=== PATIENT | female | born 1980 | race Native Hawaiian/Other Pacific Islander ===

== ENCOUNTER 2017-07-13 11:53 | Inpatient (IN) | payer BC, OTHER ==
--- NOTE | 2017-07-13 12:55 | OBHP ---
Datetime: 07/13/2017 12:46 IP Adm Impression: Term, intrauterine IP Adm Impression Other: previous csection in labor IP Admit Plan: Admit to unit; Initiate Section protocol Admit Comment, IP Provider: chief complaint-contractions HPI 36 y/o at 38.1 wga with c/o contractions.Patient denies nausea, vomting, headache, chest pain, shortness of breath, numbness or tingling in hands and feet course complictaed by xanax use during .Patient s/p genetic cousnelling.declined amnio. PMH depression and anxiety PSH csectionx2 OBGYN HX ; Csectionx2 Social hx denies tobacco,alcohol or illicit drug use Exam see exam section A/P 36 y/o at 38.1 wga with hx of 2 previous csection in labor -admit -see orders dr du aware Pelvic Type - PN: Adequate Extremities - PN: Normal Abdomen - PN: Normal Back - PN: Normal Lungs - PN: Normal Heart - PN: Normal Neurologic - PN: Normal General - PN: Normal Contraction Comments Provider: every 3-5min Gestation - Est Wks by US: 38.1 EGA AdmitDate IP: 38.1 Vital Signs Provider: Reviewed; Within Normal Limits IP Chief Complaint: Uterine contractions FHR Category Provider Fetus A: Category I Dilatation, Provider: 1 Effacement, Provider: 70 Station, Provider: -3 Genitourinary Exam: Normal DTRs - PN: Normal
[2017-07-13 12:57] VITALS: BMI 30.8
[2017-07-13] MEDS ORDERED: cefOXitin IV 2 gm in Dextrose 2 GM/50 ML BAG IVPB ONE ×2 (12:57→14:14)
[2017-07-13] MEDS ORDERED: Sodium Citrate/Citric Acid 15 ml Sol PO ONE (12:57)
[2017-07-13] MEDS ORDERED: Lactated Ringer's 1,000 ML IV SCH (13:00)
[2017-07-13 13:43] LABS: BASO # 0.1 K/uL (0.0-0.2); BASO % 0.7 % (0.0-2.0); EOS # 0.5 K/uL (0.0-0.7); EOS % 3.4 % (0.0-4.0); HEMATOCRIT 34.7 % (34.0-47.0); LYMPH # 2.2 K/uL (1.0-4.3); LYMPH % 16.6 % (20.0-40.0); MEAN CORPUSCULAR HGB CONC 33.8 g/dL (33.0-37.0); MEAN PLATELET VOLUME 9.5 fL (7.2-11.7); MONO # 0.7 K/uL (0.0-0.8); MONO % 5.3 % (0.0-10.0); RED CELL DISTRIBUTION WIDTH 14.3 % (11.5-14.5); WHITE BLOOD COUNT 13.6 K/uL (4.8-10.8)
[2017-07-13 13:52] LABS: MEAN CELL VOLUME 85.9 fL (81.0-99.0)
[2017-07-13 13:54] LABS: CHLORIDE 102 mmol/L (98-107)
[2017-07-13 13:55] LABS: POTASSIUM 3.9 mmol/L (3.6-5.2); SODIUM 136 mmol/L (132-148)
[2017-07-13 13:57] LABS: ALKALINE PHOSPHATASE 179 U/L (38-126); AST/SGOT 17 U/L (14-36); BILIRUBIN,TOTAL 0.8 mg/dL (0.2-1.3); BLOOD UREA NITROGEN 6 mg/dL (7-17); CARBON DIOXIDE 20 mmol/L (22-30); GFR AFRICAN-AMERICAN > 60; GLUCOSE,RANDOM 71 mg/dL (65-105); TOTAL PROTEIN 7.1 g/dL (6.3-8.3)
[2017-07-13 13:58] LABS: ALT/SGPT 18 U/L (9-52); CALCIUM 9.1 mg/dl (8.6-10.4)
[2017-07-13 14:07] LABS: RBC URINE 3 /hpf (0-3); URINE BACTERIA OCC (<OCC); URINE BILIRUBIN NEGATIVE (NEGATIVE); URINE COLOR Yellow (YELLOW); URINE GLUCOSE (UA) NORMAL (Normal); URINE KETONE TRACE mg/dL (NEGATIVE); URINE LEUKOCYTE ESTERASE NEG Leu/uL (Negative); URINE PROTEIN NEGATIVE (NEGATIVE); URINE UROBILINOGEN NORMAL mg/dL (0.2-1.0); WBC URINE 2 /hpf (0-5)
[2017-07-13 14:10] LABS: URINE BLOOD TRACE (NEGATIVE)
[2017-07-13] MEDS ORDERED: Oxytocin 20 units in LR 2,000 ML IV ONE (14:14)
[2017-07-13] MEDS ORDERED: Sodium Citrate/Citric Acid 15 ml Sol ONE (14:14)
[2017-07-13] MEDS ORDERED: Morphine 1 mg/ml preservative-free Inj(Duramorph) ONE (14:58)
[2017-07-13] MEDS ORDERED: Phenylephrine 10 mg/ml Inj ONE (14:58)
[2017-07-13] MEDS ORDERED: Oxycodone/Acetaminophen 5/325 mg Tab PO PRN (16:29)
--- NOTE | 2017-07-13 17:07 | OBADHP ---
Datetime: 07/13/2017 12:46 IP Adm Impression Other: previous csection in labor Admit Comment, IP Provider: chief complaint-contractions HPI 36 y/o at 38.1 wga with c/o contractions increasign intensity and freuqcy. Patient denie s nausea, vomting, headache, chest pain, shortness of breath, numbness or tingling in hands and feet course complictaed by xanax use during .Patient s/p genetic cousnelling.declined amnio. PMH depression and anxiety PSH csectionx2 OBGYN HX ; Csectionx2 Social hx denies tobacco,alcohol or illicit drug use Exam see exam section A/P 36 y/o at 38.1 wga with hx of 2 previous csection in labor desire permante tubal sterilzi aton -admit -see orders dr du aware pt reexamiend 3cm for RLTCS and BLT Pelvic Type - PN: Adequate Extremities - PN: Normal Abdomen - PN: Normal Back - PN: Normal Lungs - PN: Normal Heart - PN: Normal Neurologic - PN: Normal General - PN: Normal Contraction Comments Provider: every 3-5min Gestation - Est Wks by US: 38.1 Vital Signs Provider: Reviewed; Within Normal Limits IP Chief Complaint: Uterine contractions FHR Category Provider Fetus A: Category I Dilatation, Provider: 3-4 Effacement, Provider: 70 Station, Provider: -3 Genitourinary Exam: Normal DTRs - PN: Normal EGA AdmitDate IP: 38.1 IP Adm Impression: Term, intrauterine IP Admit Plan: Admit to unit; Initiate Section protocol
--- NOTE | 2017-07-13 17:07 | OBDS ---
DELIVERY PERSONNEL Delivery Doctor: Eloise Oliver MD Scrub Nurse: Monie Tapia OBT Staffing Coordinator: Bill Hutchinson RN Anesthesiologist: DR METZGER Resident: ALLISON MATERNAL INFORMATION Delivery Anesthesia: Spinal Estimated Blood Loss (ml): 800 Provider Comments: live female ifnat weight 6lbs 9 oucnes biltarey tubal ligatin peidatricin present for [facility] 800ml LABOR SUMMARY EDC: 07/26/2017 00:00 LABOR INFORMATION Group B Beta Strep: Negative STAGES OF LABOR Stage 3 hrs: 0 Stage 3 min: 1 BABY A INFORMATION Infant Delivery Date/Time: 07/13/2017 16:16 Method of Delivery: Born in Route : No : N/A Forceps: N/A Vacuum Extraction: N/A Shoulder Dystocia : No SHOULDER DYSTOCIA BABY A Delivery Date/Time: 07/13/2017 16:16 PRESENTATION/POSITION BABY A Presentation: Cephalic Cephalic Presentation: Vertex Vertex Position: Left Occipital Posterior Breech Presentation: N/A PLACENTA INFORMATION BABY A Placenta Delivery Time : 07/13/2017 16:17 (Annotations: Data stored by [facility] on behalf of user) Placenta Method of Delivery: Manual Removal Placenta Status: Delivered INFORMATION BABY A Gestational Age at Delivery: 38.1 Gestational Status: Term Outcome : Liveborn Condition : Stable Infant Sex: Female IDENTIFICATION/MEDS BABY A ID Band Number: [id number] WEIGHT/LENGTH BABY A Birthweight (gms): 2990 Infant Weight (lb): 6 Weight (oz): 9 Infant Length Inches: 18.50 Length cms: 47.0 CORD INFORMATION BABY A No. Cord Vessels: 3 Cord Blood Taken: Yes Suction: Mouth; Nose ASSESSMENT BABY A Infant Complications: None Physical Findings at Delivery: Within Normal Limits Infant Respirations: Appears Normal World History Teacher/ALS Called : Yes Infant Care By: DR HUTCHISON Transferred To: Remains with Mother
--- NOTE | 2017-07-13 17:41 | PCM.SURG1 ---
Surgeon's Initial Post Op Note - Surgeon's Notes Surgeon: Yany Oliver MD Chemical Recovery Operator: Ruy Sky MD Type of Anesthesia: General Endo, Spinal Pre-Operative Diagnosis: Prior cesearean section contractign in labor , multiparity desiring permeante tubal sterilzation Operative Findings: live female infant, cephalic presentation, agpars 9,9 adult educator [address] for delivery[address] Dr Ruy Sky was surgical attendant and present for entrie and essential in gaining entry, retractin, exposure, performing bilaterl tubal ligation, obtainign hemostasis. Post-Operative Diagnosis: same as above Operation Performed: Repeat Low Transverse cesearean section, Bilateral tubal ligation Specimen/Specimens Removed: placenta, portion of right and left fallopian tubes Estimated Blood Loss: EBL {In ML}: 800 Blood Products Given: N/A Drains Used: No Drains Post-Op Condition: Good Date of Surgery/Procedure: 07/13/17 Time of Surgery/Procedure: 17:00
[2017-07-13] MEDS: cefOXitin IV 2 gm in Dextrose 2 GM/50 ML BAG IVPB SCH (22:49)
--- NOTE | 2017-07-14 03:24 | OBPPN ---
Datetime: 07/14/2017 03:18 PP Pain Prov: Within normal limits PP Nausea Prov: Denies PP Flatus Prov: No PP BM Prov: No PP Breasts Prov: Normal PP Heart Prov: Normal PP Lungs Prov: Normal PP Abdomen/Uterus Prov: Normal PP Lochia Prov: Normal PP Vulva/Perineum Prov: Normal PP CVA Tenderness Prov: Normal PP Extremities Prov: Normal PP C/S Incision Prov: Normal PP Progress Prov: Normal PP Impression Prov: Normal progression PP Plan Prov: Continue present management PP Progress Note Prov: Pt seen and examined and reports pain controlled wth medicaoin. Pt not yet am buating, +best, tolerating clear liquid diet, denies any lightheadness, dizzyness, Cp, SOB. Pt denie s any feelsing of anxiety, sadness or depression adn reports bresat feeding is going well. VSS PE: GEN: NAD, feels tired RESP: CTAB/l CVS: RRR, +S1/S2 BREAST: NON enogaroged b/l ABD: soft, appropriatley TTP, ND, No guaridng, no reboudn tenderness, no rigidity, +BS INCSION C/D/I FUNDUS: Fimr, at level of umbilucs VE: moderate lochia , non foul smelling EXT: non calf tnednree, negateive ana's sign A/P s/p RLTCS +BTL POD #1 doing wel -Pain manamgent: percocet/motrin -advance diet as tolerated -d/c best 6am -activity out of bed with assistance -bowel regimen -encourge breast feeding -incentive spirometer -abdominal binder -f/u AM labs IP PP Procedures: None Vital Signs Provider PP: Reviewed; Within Normal Limits
[2017-07-14] MEDS: cefOXitin IV 2 gm in Dextrose 2 GM/50 ML BAG IVPB SCH ×2 (05:45→14:16)
[2017-07-14] MEDS: Oxycodone/Acetaminophen 5/325 mg Tab PO PRN ×3 (05:50→23:53)
--- NOTE | 2017-07-14 06:20 | OP ---
PROCEDURE DATE: SURGEON: Yany Oliver MD WORKFORCE SPECIALIST: Ruy Sky MD TYPE OF ANESTHESIA: Spinal. PREOPERATIVE DIAGNOSES: Prior section, protracted labor,multipara, desiring permanent tubal sterilization. POSTOPERATIVE DIAGNOSES: Prior section, protracted labor,multipara, desiring permanent tubal sterilization. OPERATIVE FINDINGS: Live female , cephalic presentation, Apgars 9 and 9. WEATHERIZATION INSTALLER PRESENT FOR DELIVERY: Dr. Ruy Sky, assistant professor of sociology, and present for entire case and essentially gaining entry, retraction, closure, performing bilateral tubal ligation, obtaining hemostasis, holding the bladder blade. OPERATION PERFORMED: Repeat low transverse section and bilateral tubal ligation. SPECIMEN: Placenta, portion of right and left fallopian tubes. ESTIMATED BLOOD LOSS: 800 mL. BLOOD PRODUCTS: None. COMPLICATIONS: None. DESCRIPTION OF PROCEDURE: The patient was taken to the operating room where she was given spinal anesthesia. Once it was adequate, she was placed on the operating table in dorsal supine position. The patient was then prepped and draped in usual sterile fashion. A time-out confirmed correct patient and correct procedure. The patient was given preoperative prophylactic antibiotic. Pfannenstiel skin incision was made with the scalpel carried down to the underlying fascia with Bovie . The fascia was incised in the midline and incision was extended laterally with the Bovie. The superior aspect of the fascial incision was grasped with Allis and Irvin clamps and underlying rectus muscle resected off bluntly. Attention was then turned to the inferior aspect of the incision in a similar fashion. It was grasped with Allis and Irvin clamps and underlying rectus muscle resected off bluntly. The rectus was then bluntly in midline. The peritoneum was identified in the clear space, entered bluntly. *------* good visualization of the bladder. The Claus was then inserted and the vesicouterine pneumoperitoneum was incised with Metzenbaum scissors. The incision was extended laterally and the bladder flap was created digitally. The lower end of [place] was then inserted. Uterine segment was incised in transverse fashion. The lower uterine segment was incised in transverse fashion, continued laterally and bluntly. Amniotic fluid membrane was then ruptured. There was clear fluid noted. The surgeon's hand entered the uterine cavity and the 's head was delivered atraumatically. The nuchal cord was noted that was easily reduced followed by delivery of shoulder and followed by delivery of the body. Both oral and nasal passages of the baby were bulb suctioned. The umbilical cord was clamped and cut and the baby was handed off the awaiting shift supervisor film processing. The cord blood and cord gases were collected and sent x2. The placenta was then delivered manually. The uterus was exteriorized and cleared off all clots and debris. The uterine incision was repaired with 0 Vicryl in a running continuous locking fashion. A second layer of the same suture was used to close the uterus in a running imbricating manner. Bilateral tubal ligation was then performed. After this, good hemostasis noted at surgical site. The fallopian tube was then grasped with Kimberton clamp approximately one third from the ampullary region near the cornua and a [place] method was then performed bilaterally on each side. Portion of the tube was then excised, cauterized, and sent to pathology; on Telfa. The uterus was then returned to the abdomen and the paracolic gutters were cleared of all clots and debris. There was good hemostasis at the uterine incision site and also at the tubal ligation site. The peritoneum was reapproximated with 2-0 chromic in a running continuous fashion. The rectus was reapproximated and closed with 2-0 chromic in an interrupted manner. Subcutaneous layers closed with 2-0 plain in interrupted manner. The skin was reapproximated and closed with 4-0 Monocryl in a running subcuticular fashion. At the end of the procedure, all needle, sponge, and instrument counts were noted as correct x2. The patient tolerated the procedure well, and was transferred to recovery room in stable condition. Yany Oliver MD
[2017-07-14 07:57] LABS: BASO % 0.1 % (0.0-2.0); EOS # 0.3 K/uL (0.0-0.7); EOS % 1.9 % (0.0-4.0); HEMATOCRIT 33.6 % (34.0-47.0); LYMPH # 1.1 K/uL (1.0-4.3); LYMPH % 6.6 % (20.0-40.0); MEAN CELL VOLUME 86.2 fL (81.0-99.0); MEAN CORPUSCULAR HEMOGLOBIN 28.5 pg (27.0-31.0); MEAN CORPUSCULAR HGB CONC 33.1 g/dL (33.0-37.0); MEAN PLATELET VOLUME 9.1 fL (7.2-11.7); MONO # 0.9 K/uL (0.0-0.8); PLATELET COUNT 176 K/uL (130-400); RED CELL DISTRIBUTION WIDTH 14.5 % (11.5-14.5); WHITE BLOOD COUNT 17.4 K/uL (4.8-10.8)
[2017-07-14 10:17] LABS: EOSINOPHIL 3 % (0-4); MYELOCYTE 1 % (0-0); NEUTROPHIL 70 % (50-75); TOTAL CELLS COUNTED 100
[2017-07-14] MEDS: Simethicone 80 mg Chewtab PO SCH ×4 (10:33→21:08)
[2017-07-14] MEDS: Prenatal Multivit/Folic Acid/Iron Tab PO SCH (10:33)
[2017-07-14] MEDS ORDERED: cefOXitin IV 2 gm in Dextrose 2 GM/50 ML BAG IVPB ONE (14:08)
[2017-07-15 07:39] LABS: BASO % 0.2 % (0.0-2.0); EOS # 0.5 K/uL (0.0-0.7); EOS % 3.2 % (0.0-4.0); HEMATOCRIT 29.4 % (34.0-47.0); LYMPH # 2.4 K/uL (1.0-4.3); LYMPH % 15.4 % (20.0-40.0); MEAN CELL VOLUME 87.4 fL (81.0-99.0); MEAN CORPUSCULAR HEMOGLOBIN 28.8 pg (27.0-31.0); MEAN PLATELET VOLUME 9.1 fL (7.2-11.7); MONO % 6.7 % (0.0-10.0); RED CELL DISTRIBUTION WIDTH 14.1 % (11.5-14.5); WHITE BLOOD COUNT 15.6 K/uL (4.8-10.8)
--- NOTE | 2017-07-15 09:24 | CP.PCM.PN ---
<YADY,MARK - Last Filed: 07/15/17 09:22> Subjective - Date & Time of Evaluation Date of Evaluation: 07/15/17 Time of Evaluation: 09:00 - Subjective Subjective: Austin Carrillo PGY1 ObGyn service pt was seen and examined bedside. pt sitting in chair, comfortably. complains of pain that is somewhat controlled by meds, and that she requested pain meds last night when the pain was severe. denies n/v/d. +flatus but no BM yet. denies dysuria. Lochia + bloody with 3-4 pads being used. No fevers, chest pain or leg swelling/pain. Objective - Vital Signs/Intake and Output Vital Signs (last 24 hours): Temp Pulse Resp BP Pulse Ox 97.0 F L 74 18 104/71 100 07/15/17 08:00 07/15/17 08:00 07/15/17 08:00 07/15/17 08:00 07/15/17 08:00 - Medications Medications: Current Medications Docusate Sodium (Colace) 100 mg PO BID [place] Last Admin: 07/14/17 17:25 Dose: 100 mg Lactated Ringer's (Lactated Ringer's) 1,000 mls @ 125 mls/hr IV .Q8H [place] Oxytocin (Pitocin 20 Units In Lr) 1,000 mls @ 125 mls/hr IV .Q8H [place] PRN Reason: Protocol Ibuprofen (Motrin Tab) 600 mg PO Q4 PRN PRN Reason: Pain, Mild (1-3) Last Admin: 07/15/17 06:51 Dose: 600 mg Morphine Sulfate (Morphine) 2 mg IVP STAT PRN PRN Reason: Pain, moderate (4-7) Last Admin: 07/13/17 22:52 Dose: 2 mg Oxycodone/Acetaminophen (Percocet 5/325 Mg Tab) 2 tab PO Q4H PRN PRN Reason: Pain, severe (8-10) Stop: 07/16/17 16:30 Last Admin: 07/14/17 23:53 Dose: 2 tab Oxycodone/Acetaminophen (Percocet 5/325 Mg Tab) 1 tab PO Q4H PRN PRN Reason: Pain, moderate (4-7) Stop: 07/16/17 16:30 Multivit/Folic Acid/Iron () 1 tab PO DAILY [facility] Last Admin: 07/14/17 10:33 Dose: 1 tab Simethicone (Mylicon Chew Tab) 80 mg PO QID [facility] Last Admin: 07/14/17 21:08 Dose: 80 mg - Labs Labs: 07/15/17 07:21 07/13/17 13:38 - Constitutional Appears: Well, Non-toxic, No Acute Distress - Head Exam Head Exam: ATRAUMATIC, NORMAL INSPECTION, NORMOCEPHALIC - Eye Exam Eye Exam: EOMI, Normal appearance, PERRL - ENT Exam ENT Exam: Mucous Membranes Moist, Normal Exam - Respiratory Exam Respiratory Exam: Clear to Ausculation Bilateral, NORMAL BREATHING PATTERN. absent: Accessory Muscle Use - Cardiovascular Exam Cardiovascular Exam: RRR, +S1, +S2 - GI/Abdominal Exam GI & Abdominal Exam: Soft, Normal Bowel Sounds. absent: Tenderness - Neurological Exam Neurological Exam: Alert, Awake, Oriented x3 - Psychiatric Exam Psychiatric exam: Normal Affect, Normal Mood - Skin Skin Exam: Normal Color, Warm - Additional Findings Additional findings: sitting in chair comfortably dad in the room baby resting in bassinet Assessment and Plan - Assessment and Plan (Free Text) Assessment: 36F s/p with BTL at 38 wks on 07/13/17. Plan: pain management, controlled well on Percocet PRN and Motrin PRN regular diet advanced out of bed and ambulating, no LE edema or pain +flatus, no BM yet Austin Carrillo PGY1 ObGyn service <Yany Oliver - Last Filed: 07/19/17 11:38> Objective - Vital Signs/Intake and Output Vital Signs (last 24 hours): Temp Pulse Resp BP Pulse Ox 97.8 F 80 20 100/55 L 98 07/16/17 22:28 07/16/17 22:28 07/16/17 22:28 07/16/17 22:28 07/16/17 22:28 - Labs Labs: 07/16/17 08:17 07/13/17 13:38 Assessment and Plan - Assessment and Plan (Free Text) Plan: agree wtih above Wiley Oliver MD
[2017-07-15] MEDS: Simethicone 80 mg Chewtab PO SCH ×4 (11:14→21:31)
[2017-07-15] MEDS: Prenatal Multivit/Folic Acid/Iron Tab PO SCH (11:16)
[2017-07-15 17:03] VITALS: RESP 20
[2017-07-15] MEDS: Oxycodone/Acetaminophen 5/325 mg Tab PO PRN (21:32)
[2017-07-16 08:27] LABS: BASO # 0.1 K/uL (0.0-0.2); EOS # 0.6 K/uL (0.0-0.7); EOS % 4.1 % (0.0-4.0); HEMATOCRIT 32.2 % (34.0-47.0); LYMPH # 1.7 K/uL (1.0-4.3); LYMPH % 12.5 % (20.0-40.0); MEAN CELL VOLUME 87.7 fL (81.0-99.0); MEAN CORPUSCULAR HEMOGLOBIN 28.5 pg (27.0-31.0); MEAN CORPUSCULAR HGB CONC 32.5 g/dL (33.0-37.0); MEAN PLATELET VOLUME 8.8 fL (7.2-11.7); MONO # 0.7 K/uL (0.0-0.8); MONO % 4.9 % (0.0-10.0); RED CELL DISTRIBUTION WIDTH 14.6 % (11.5-14.5); WHITE BLOOD COUNT 13.8 K/uL (4.8-10.8)
--- NOTE | 2017-07-16 08:45 | OBPPN ---
Datetime: 07/15/2017 08:56 PP Pain Prov: Within normal limits PP Nausea Prov: Denies PP Flatus Prov: Yes PP BM Prov: No PP Heart Prov: Normal PP Lungs Prov: Normal PP Abdomen/Uterus Prov: Normal PP Lochia Prov: Normal PP CVA Tenderness Prov: Normal PP Extremities Prov: Normal PP C/S Incision Prov: Normal PP Progress Prov: Normal PP Impression Prov: Normal progression PP Plan Prov: Continue present management PP Progress Note Prov: S-patient reports that her pain is controlled with pain meds.Ambulating and v oiding without difficulty.Denies nausea, vomiting, headache, chest pain, shortness of breath, numbnes s or tingling in hands and feet O-VSS Afebrile Abdomen -soft and nontender Fundus firm and below umbilcius Incision clean, dry and intact extremities- no calf tenderness A/P Patient s/p csection pod 2 doing well -continue routine post op care Vital Signs Provider PP: Reviewed; Within Normal Limits
--- NOTE | 2017-07-16 08:48 | OBDCSUM ---
Datetime: 07/16/2017 08:45 Discharged to, Provider: Home Follow up at, Provider: Dr Benito Zee Instr Activity: Normal activity Disch Instr Diet: Regular Discharge Instructions, Provider: Routine instructions given Discharge Diagnosis, Provider: Term Delivered Discharge Time: 07/16/2017 08:45 Follow up in weeks, Provider: 1 week Disch Referrals: None Contraception discussed, Prov: Yes Disch Activity Restrictions: No exercising; No lifting; No driving; Minimize walking; Minimize stair -climbing; No sexual activity; Nothing in vagina - Antonito, tampons, douche Discharge Comment, Provider: rt 1 week precaution miko
--- NOTE | 2017-07-16 08:48 | OBPPN ---
Datetime: 07/16/2017 08:45 PP Pain Prov: Within normal limits PP Nausea Prov: Denies PP Flatus Prov: Yes PP BM Prov: Yes PP Breasts Prov: Normal PP Heart Prov: Normal PP Lungs Prov: Normal PP Abdomen/Uterus Prov: Normal PP Lochia Prov: Normal PP Vulva/Perineum Prov: Normal PP CVA Tenderness Prov: Normal PP Extremities Prov: Normal PP Progress Note Prov: S-patient reports that her pain is controlled with pain meds.Ambulating and v oiding without difficulty.Denies nausea, vomiting, headache, chest pain, shortness of breath, numbnes s or tingling in hands and feet, denies any felign of sadness or depressin or anxiety O-VSS Afebrile Abdomen -soft and nontender Fundus firm and below umbilcius Incision clean, dry and intact extremities- no calf tenderness A/P Patient s/p csection pod 3 doing well stablwe for discharge -continue routine post op care dc home rto 1 qweek precaution givne Vital Signs Provider PP: Reviewed; Within Normal Limits
[2017-07-16] MEDS: Prenatal Multivit/Folic Acid/Iron Tab PO SCH (10:33)
[2017-07-16] MEDS: Simethicone 80 mg Chewtab PO SCH ×2 (10:33→14:55)
[2017-07-16 22:29] VITALS: BP 100/55; PULSE 80; TEMP 97.8; O2SAT 98
== END 2017-07-16 16:00 | disposition home or self-care (01) | DRG 765 ==
LOC: C.EROB 11:53 → C.4D 13:04 → C.4M 19:52
PROVIDERS: ADMIT Obstetrics & Gynecology; ATTEND Obstetrics & Gynecology
PROC: 10D00Z1 Extraction of Products of Conception, Low, Open Approach (ICD-10-PCS; principal; 2017-07-13)
PROC: 0UB70ZZ Excision of Bilateral Fallopian Tubes, Open Approach (ICD-10-PCS; 2017-07-13)
DX: O34.211 Maternal care for low transverse scar from previous cesarean delivery (principal); O63.9 Long labor, unspecified; Z30.2 Encounter for sterilization; Z3A.38 38 weeks gestation of pregnancy; Z37.0 Single live birth